=== PATIENT | female | born 1965 | race Caucasian/White ===

== ENCOUNTER → 2021-07-17 | Outpatient (CLI) | payer OTHER | LOC: EXRD 11:19 | DX: E04.9 Nontoxic goiter, unspecified (principal) | CPT/HCPCS: 76536 ==

== ENCOUNTER → 2022-01-31 | Outpatient (CLI) | payer OTHER | LOC: EXRD 14:18 | DX: E04.2 Nontoxic multinodular goiter (principal) | CPT/HCPCS: 76536 ==